=== PATIENT | female | born 2000 | race Two or more races ===

== ENCOUNTER 2024-06-06 12:29 | Emergency (ER) | payer MEDICAID, SELFPAY ==
[2024-06-06 13:00] VITALS: BP 107/73; PULSE 116; RESP 18; TEMP 38.4; O2SAT 96; BMI 28.3
[2024-06-06] MEDS: ONDANSETRON ODT 4 MG TABRAP PO (13:22)
[2024-06-06] MEDS: IBUPROFEN TAB 600 MG TABLET PO (13:23)
[2024-06-06 14:29] VITALS: BP 118/76; PULSE 102; RESP 18; TEMP 37.3; O2SAT 98
[2024-06-06 14:30] VITALS: TEMP 37.3
--- NOTE | 2024-06-06 14:36 | PD.EDNV ---
Nausea/Vomit./Diarrhea-RME/HPI General Chief complaint: Abdominal Pain Stated complaint: stomach ache, diarhea, body aches, shaky x 1 day Time Seen by Provider: 06/06/24 12:39 Arrival date/time: 06/06/24 12:29 24-year-old female presents to the emergency department with complaints of bodyaches, fever vomiting and diarrhea which began last night does report positive sick contacts at home Limitations: no limitations Related Data Home Medications ?Medication ?Instructions ?Recorded ?Confirmed prenat.vits,sudeep,cck-[id number] 1 tab PO QDAY 11/03/22 12/26/22 Previous Rx's ?Medication ?Instructions ?Recorded acetaminophen 500 mg capsule 1,000 mg (2 x 500 mg) PO Q8HR PRN 06/06/24 pain #30 caps loperamide 2 mg capsule (Imodium 2 mg PO Q6H PRN loose stool #14 06/06/24 A-D) caps ondansetron 4 mg disintegrating 4 mg PO Q8H PRN nausea and 06/06/24 tablet vomiting #10 tabs Allergies Allergy/AdvReac Type Severity Reaction Status Date / Time No Known Allergies Allergy Verified 12/25/22 22:52 Review of Systems Review of Systems Systems Reviewed: All systems reviewed, normal except as documented Constitutional Constitutional: Reports system reviewed and no additional complaints, except as documented, Denies fever(s) and Denies headache(s) Eyes Eyes: Reports system reviewed and no additional complaints, except as documented and Denies blurry vision ENT Ears, Nose, Mouth, and Throat: Reports system reviewed and no additional complaints, except as documented, Denies headache(s), Reports nasal congestion and Reports nasal discharge Cardiovascular Cardiovascular: Reports system reviewed and no additional complaints, except as documented, Denies chest pain and Denies dyspnea Respiratory Respiratory: Reports system reviewed and no additional complaints, except as documented, Reports chest congestion, Reports cough and Denies dyspnea Gastrointestinal Gastrointestinal: Reports system reviewed and no additional complaints, except as documented, Denies abdominal pain, Reports loose stools, Reports nausea and Reports vomiting Integumentary/Breasts Skin/Breast: Reports system reviewed and no additional complaints, except as documented and Denies rash Neurologic Neurologic: Reports system reviewed and no additional complaints, except as documented, Reports as per HPI and Denies headache(s) Past Medical History Past Medical History NEUROLOGIC: Negative Neurological Disorders CARDIAC: Negative Cardiac Disorders ED Exam General Limitations: Present no limitations General appearance: Present alert and in no apparent distress Head Head exam: Present atraumatic, normocephalic and normal inspection Eye Eye exam: Present normal appearance, PERRL and EOMI ENT ENT exam: Present normal exam, normal oropharynx and mucous membranes moist Neck Neck exam: Present normal inspection, full ROM and trachea midline Chest Chest inspection: Present normal inspection and symmetric chest wall rise Respiratory Respiratory exam: Present normal lung sounds bilaterally; Absent respiratory distress Cardiovascular Cardiovascular exam: Present regular rate, normal rhythm and normal heart sounds Abdominal Exam Abdominal exam: Present soft and normal bowel sounds; Absent distention, tenderness, guarding, rebound or rigidity Extremities Exam Extremities exam: Present normal inspection and full ROM Back Exam Back exam: Present normal inspection and full ROM Neurological Exam Neurological exam: Present alert, oriented X3 and CN II-XII intact Psychiatric Psychiatric exam: Present normal affect and normal mood Skin Skin exam: Present warm, dry, intact and normal color Course Quality Measures none Orders Category Date Time Status Bedside Influenza A&B Antigen Test NOW Care 06/06/24 12:54 Completed Ibuprofen Tab [Motrin Tab] Med 06/06/24 13:13 Discontinued 600 mg PO X1 ONE Ondansetron Odt [Zofran Odt] Med 06/06/24 13:13 Discontinued 4 mg PO X1 ONE Vital Signs Vital signs: Vital Signs Temperature 101.1 F H 06/06/24 13:00 Pulse Rate 116 H 06/06/24 13:00 Respiratory Rate 18 06/06/24 13:00 Blood Pressure 107/73 06/06/24 13:00 Pulse Oximetry (%) 96 06/06/24 13:00 Oxygen Delivery Method Room Air 06/06/24 13:00 O2 saturation 96% room air within normal limits Nausea/Vomiting/Diarrhea MDM Narrative MDM Narrative:: 24-year-old female presents to the emergency department with complaints of bodyaches, fever vomiting and diarrhea which began last night does report positive sick contacts at home On exam patient well-appearing patient does not appear ill or toxic patient does not appear in acute distress I do not suspect patient septic despite having fever Patient checked for influenza came back negative I suspect symptoms are still consistent with viral illness After patient medicated with Zofran and Tylenol patient reports he feels significantly better Patient discharged home in no distress to follow-up with primary care doctor in the next 24 to 48 hours and for any worsening symptoms to return to the ER immediately Patient data External records reviewed:: [facility] previous records Clinical information provided by:: patient Social determinants that could affect healthcare access:: none Patient has the following chronic illnesses:: None How is presenting disease/condition affected by chronic disease/condition?: no chronic disease Evaluation data The following diagnostics were reviewed and interpreted by me:: lab results Lab and/or radiology exams considered but not ordered:: Lab obtained Interpretation Summary: Reviewed by me Medications / Prescriptions Medications / Prescriptions considered but not ordered:: Given Medication administrations:: Medication Administration History Discontinued Medications Ibuprofen (Ibuprofen Tab 600 Mg Tablet) 600 mg PO X1 ONE Stop: 06/06/24 13:14 Last Admin: 06/06/24 13:23 Dose: 600 mg Documented By: JOESPH Ondansetron HCl (Ondansetron Odt 4 Mg Tabrap) 4 mg PO X1 ONE; Protocol Stop: 06/06/24 13:14 Last Admin: 06/06/24 13:22 Dose: 4 mg Documented By: JOESPH Given Consultations Consultation(s) initiated? (list below): No Diagnosis Nausea Differential Diagnosis: traveler's diarrhea and gastroenteritis Most likely diagnosis given after review of the tests above:: Viral illness Admission Indicated Admission indicated?: not indicated Admission Request Was there a request for admission?: No Disposition Plan Disposition Plan: Discharge Discharge Attestation Discharge Attestation: The patient and all family members were given an opportunity to ask questions and understood the discharge instructions. Discharge instructions specifically effects, indications for sooner follow up or return to the emergency department, and the expected course of current diagnosis. Patient condition: Stable Discharge Plan Plan Patient Disposition: HOME (Self Care) Disposition Comment: Stable Prescriptions/Referrals Prescriptions/Med Rec: New loperamide [Imodium A-D] 2 mg capsule 2 mg PO Q6H PRN (Reason: loose stool) Qty: 14 0RF ondansetron 4 mg tablet,disintegrating 4 mg PO Q8H PRN (Reason: nausea and vomiting) Qty: 10 0RF acetaminophen 500 mg capsule 1,000 mg PO Q8HR PRN (Reason: pain) Qty: 30 0RF No Action Vitamin Tablet 1 tab PO QDAY Problem List Clinical Impression: Viral illness Patient/Caregiver Discharge Instructions Education Materials: ED Viral Syndrome (Adult) Additional Instructions: Please follow up with your primary care doctor in the next 24-48hrs for any worsening symptoms return here immediately Print Language: Sudanese Stand Alone Forms: Rina Award Info., Work/School Release, Patient Portal Info Letter PA/SIGNALMAN Supervising Physician PA/SIGNALMAN Supervising Physician: Dr verde
== END 2024-06-06 14:43 | disposition home or self-care (01) ==
LOC: SERX 14:48
PROVIDERS: Emergency Provider Emergency Medicine
DX: B34.9 Viral infection, unspecified (principal)
CPT/HCPCS: 87400; 99283; Q0162; A9270